=== PATIENT | female | born 1995 | race Hispanic/Latino ===

== ENCOUNTER → 2017-03-24 | Outpatient (CLI) | payer MEDICARE ==
--- NOTE | 2017-03-26 17:38 | US ---
EXAM DESCRIPTION: Liver: Ultrasound. CLINICAL HISTORY: 22 years Female, UPPER ABDOMEN PAIN 16 weeks IUP. COMPARISON: None. TECHNIQUE: Transabdominal standard technique: Two-dimensional and Doppler modes. FINDINGS: No intraluminal stones or sludge in the gallbladder. No wall thickening or surrounding fluid. Nontender. Pancreas is unremarkable. Normal caliber of the common bile duct. Normal echogenicity of the liver. Included capsule smooth. No intrahepatic dilatation. 14.4 cm craniocaudal axis of the right lobe. Normal direction of portal vein supply and caliber. No ascites. Normal echogenicity of the kidney. 11.5 cm long axis. IMPRESSION: Normal liver and other solid organs in the right upper quadrant including the gallbladder. No ascites. Normal ducts. Electronically signed by: Jose Robledo MD 03/26/2017 5:37 PM GENERAL MANAGER
== END | disposition home or self-care (01) ==
LOC: US 10:22
PROVIDERS: ATTEND Obstetrics & Gynecology
DX: O21.9 Vomiting of pregnancy, unspecified (principal); Z3A.16 16 weeks gestation of pregnancy